=== PATIENT | male | born 2000 ===

== ENCOUNTER 2023-02-21 08:49 | Outpatient (AMB) | payer OTHER, MEDICAID, SELFPAY ==
[2023-02-21 09:01] VITALS: BP 100/62; PULSE 62; O2SAT 98; BMI 28.6
--- NOTE | 2023-02-21 09:01 | A.OFFPC_ITS ---
Vital Signs 02/21/23 09:01 Height 5 ft 11 in Weight 205 lb BMI 28.6 BP 100/62 Blood Pressure Location Lt brachial Position Sitting Pulse 62 Pulse Source Pulse Oximeter Pulse Oximetry (%) 98 Oxygen Delivery Method Room Air Intake Visit Reasons: Annual Exam for School Intake Note: Patient is here today for a physical. 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 Accompanied by: Self / Same As Patient Allergies No Known Allergies [No Known Allergies*] Allergy (Verified 02/21/23 09:24) Medication List - Last Reconciled 02/21/23 by Stuart Velez PA-C No Known Home Meds Tobacco use date assessed: 02/21/23 Dental Screening Dental Screen Date: 02/21/23 Did you have a dental visit in the last 12 months?: No Did you have a dental problem in the last 6 months where you did not have access to dental care?: No Was dental information given to patient?: Yes HPI Annual Exam for School HPI Details Patient is a 23-year-old male here today for an new patient/ annual physical. This is the 1st time I am meeting this 23-year-old male. 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 No concerns about his health today. Vaccines: Up-to-date with COVID vaccine, tetanus vaccine. [facility] Surgical History S/P knee surgery Social History (Updated 02/21/23 @ 09:28 by Stuart Velez PA-C) Housing: Apartment ([employer] [facility]) Alcohol intake: current Alcohol intake frequency: holidays/special occasions only Alcohol type: beer Patient Tobacco Use Status: Never used Tobacco e-Cigarette/Vaping Use: Never Used service: No Current occupational status: student Cognitive needs: No Hearing needs: No Vision needs: No Questionnaire PHQ-9 Over the last 2 weeks, how often have you been bothered by any of the following problems? 1. Little interest or pleasure in doing things: not at all 2. Feeling down, depressed, or hopeless: not at all 3. Trouble falling or staying asleep, or sleeping too much: not at all 4. Feeling tired or having little energy: not at all 5. Poor appetite or overeating: not at all 6. Feeling bad about yourself - or that you are a failure or have let yourself or your family down: not at all 7. Trouble concentrating on things, such as reading the newspaper or watching television: not at all 8. Moving or speaking so slowly that other people could have noticed. Or the opposite - being so fidgety or restless that you have been moving around a lot more than usual: not at all 9. Thoughts that you would be better off or of hurting yourself in some way: not at all Total score: 0 Depression Screening Interpretation: Negative 19755 - PHQ-9 Billing: Yes Source: Developed by Drs. José Luis Ji, Whitney Brown, Rich Byers and colleagues, with an educational tigre from [employer]. Thrive Questionnaire Date Thrive assessed: 02/21/23 I am a: Patient What is your living situation today?: I have a steady place to live Within the past 12 months, did the food you bought not last and you didn't have the money to get more?: Never true Within the past 12 months, did you worry whether your food would run out before you got money to buy more?: Never true Do you have trouble paying for medicines?: No Do you have trouble getting transportation to medical appointments?: No Do you have trouble paying your heating and electricity bill?: No Do you have trouble taking care of your child, family member or friend?: No Do you have trouble with day-to-day activities such as bathing, preparing meals, shopping, managing finances, etc.?: No Are you currently unemployed and looking for a job?: No Please select the resources that you would like help with: None Currently or been in a relationship where the following occur: no concerns reported AUDIT C Alcohol Use Questionnaire (AUDIT-C) 1. How often do you have a drink containing alcohol?: 2-4 times a month 2. How many drinks containing alcohol do you have on a typical day when you are drinking?: 3 or 4 3. How often do you have six or more drinks on one occasion?: Monthly Total Score: 5 NUPUR-7 AMB Questionnaire NUPUR-7 Date NUPUR - 7 assessed: 02/21/23 Feeling nervous, anxious, or on edge: 0 = Not at all Not being able to stop or control worryin = Not at all Worrying too much about different things: 0 = Not at all Trouble relaxin = Not at all Being so restless that it is hard to sit still: 0 = Not at all Becoming easily annoyed or irritable: 0 = Not at all Feeling afraid as if something awful might happen: 0 = Not at all Total NUPUR-7 score (0-4 normal; 5-9 mild; 10-14 moderate; 15-21 severe): 0 Source: Developed by Drs. José Luis Ji, Whitney Brown, Rich Byers and colleagues, with an educational tigre from [employer]. NUPUR-7 Assessment Billing NUPUR-7 Assessment Tool: NUPUR-7 Assessment 40911 Review of Systems Const Denies body aches, Denies chills, Denies excessive sweating, Denies fatigue, Denies fever(s) and Denies headache(s) Eyes Denies blurry vision ENT Denies dysphagia, Denies vertigo, Denies dizziness, Denies headache(s), Denies hearing loss and Denies tinnitus Card Denies chest pain, Denies chest pain with activity, Denies syncope, Denies irregular heart rhythm and Denies dyspnea Resp Denies chest congestion, Denies cough, Denies hemoptysis, Denies dyspnea and Denies wheezing GI Denies abdominal pain, Denies melena, Denies hematochezia, Denies coffee ground emesis, Denies dysphagia, Denies diarrhea, Denies nausea and Denies vomiting Denies difficulty urinating, Denies dysuria, Denies urinary frequency, Denies urinary hesitancy and Denies urinary urgency Musc Denies arthralgias, Denies limited range of motion, Denies muscle cramps and Denies muscle weakness Skin/Breast Denies rash and Denies skin ulcer Neuro Denies Abnormal speech present, Denies confusion, Denies vertigo, Denies dizziness, Denies syncope, Denies headache(s), Denies memory loss and Denies seizure-like activity Psych Denies anxiety, Denies confusion, Denies depression, Denies memory loss, Denies panic attacks and Denies paranoia Endo Denies excessive sweating, Denies fatigue, Denies flushing, Denies polydipsia and Denies polyuria Aller/Immun Denies wheezing Physical exam (Primary Care) Vital Signs: Last Vital Signs Pulse 62 02/21/23 09:01 BP 100/62 09/12/23 09:01 Pulse Ox 98 02/21/23 09:01 Oxygen Delivery Method Room Air 02/21/23 09:01 BMI result Body Mass Index 28.6 Tobacco/Smoking Status: Tobacco use Status Tobacco use date assessed 02/21/23 02/21/23 09:13 Patient Tobacco Use Status Never used Tobacco 02/21/23 09:13 e-Cigarette/Vaping Use Never Used 02/21/23 09:13 PHQ-9: PHQ-9 Score PHQ-9: Total score 0 02/21/23 09:13 Depression Screening Interpretation: Negative Thrive Assessment: Date of Thrive Assessment Date Thrive assessed 02/21/23 02/21/23 09:13 Currently or been in a relationship where the following occur: no concerns reported Const General: cooperative, comfortable, no acute distress, alert and awake; No confusion Orientation/consciousness: oriented to person, oriented to place, patient oriented x3 and No confusion HENMT Head: Yes normocephalic Ears: external ears normal and TM's normal bilaterally Face and sinus: No sinus tenderness Mouth: Normal oral and palatal mucosa present and tongue normal Teeth and gingiva: dentition normal and gingiva normal Throat: Yes posterior oropharynx normal, Yes tonsils normal and Yes uvula midline Eyes Conjunctivae: conjunctivae normal Sclerae: sclerae normal Pupils: Equal, round and reactive pupils present EOM: EOMs intact bilaterally Direct Ophthalmoscopy: No no photophobia Neck Neck: Yes no lymphadenopathy, No tender and Yes no JVD Thyroid: Thyroid normal Carotids: no bruits Chest Chest palpation & inspection: no tenderness Resp Effort & Inspection: normal respiratory effort, no audible wheezes, not labored and no stridor Auscultation: no crackles, no rales, no rhonchi and no wheezes Cardio Jugular venous distension: no JVD Rate: regular rate, not bradycardic and not tachycardic Rhythm: regular rhythm Bruits: no carotid bruits Peripheral pulses: Peripheral pulses 2+ throughout GI Inspection: Yes normal to inspection, No abdominal wall ecchymosis and No visible herniation Palpation (GI): Soft to palpation, nontender, no guarding, not rigid and No hepatosplenomegaly present Auscultation: normoactive bowel sounds General: Yes no CVA tenderness Back/Spine/Pelvis Back: no CVA tenderness and No back tenderness Cervical Spine: cervical ROM normal Thoracic/Lumbar Spine: thoracic and lumbar spine normal to inspection, straight leg raise negative bilaterally, No thoraco-lumbar ROM limited and No lumbar spinal tenderness Skin Lesions: no lesions Rashes: no rashes Wounds: no wounds Neuro General: oriented to person, oriented to place, patient oriented x3, CN's II-XI intact bilaterally and No confusion Cranial nerves: Yes Equal, round and reactive pupils present and Yes Normal acco mmodation reflex present Cognition (Neuro): normal cognition Speech: No Abnormal speech present Gait exam (Neuro): Normal gait present Motor exam (neuro): 5/5 motor strength present throughout Extrem Right upper extremity: full ROM; no cyanosis Left upper extremity: full ROM; no cyanosis Right lower extremity: no edema Left lower extremity: no edema Psych Appearance: grossly normal Mental Status: mental status grossly normal Affect: normal affect Attitude: cooperative Thought process: Normal thought process present Assessment and Plan Assessment & Plan (1) Annual physical exam: Code(s): Z00.00 - Encounter for general adult medical examination without abnormal findings (2) Screening for diabetes mellitus (DM): Code(s): Z13.1 - Encounter for screening for diabetes mellitus Orders: Orders Complete Blood Count no Diff Today Z13.1 - Encounter for screening for diabetes mellitus Comprehensive [place]. Panel Fast Today Z13.1 - Encounter for screening for diabetes mellitus Coding Level of Care Code New Pt Prev Care 18-39yr(99600 Diagnoses Annual physical exam Z00.00 Screening for diabetes mellitus (DM) Z13.1 Additional Codes NUPUR-7 Assessment Billing - NUPUR-7 Assessment Tool: NUPUR-7 Assessment 03341 ([id number])
== END 2023-02-21 09:39 | disposition home or self-care (01) ==
PROVIDERS: PCP Pediatrics; Visit Provider Physician Assistant
DX: Z00.00 Encounter for general adult medical examination without abnormal findings (principal); Z13.1 Encounter for screening for diabetes mellitus
CPT/HCPCS: 99385

== ENCOUNTER 2024-04-11 15:11 | Outpatient (AMB) | payer OTHER, MEDICAID, SELFPAY ==
--- NOTE | 2024-04-11 15:18 | MHC.PC.OV ---
Vital Signs 04/11/24 15:26 Height 5 ft 11 in Weight 182 lb BMI 25.4 BP 104/60 Blood Pressure Location Rt brachial Position Sitting Pulse 58 Pulse Source Pulse Oximeter Pulse Oximetry (%) 99 Oxygen Delivery Method Room Air Intake Visit Reasons: annual exam Intake Note: Patient is here today for a physical. 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 Accompanied by: Self / Same As Patient Allergies No Known Allergies [No Known Allergies*] Allergy (Verified 04/11/24 15:29) Medication List - Last Reconciled 04/11/24 by Stuart Velez PA-C No Known Home Meds Tobacco use date assessed: 04/11/24 Dental Screening Dental Screen Date: 04/11/24 Did you have a dental visit in the last 12 months?: Yes Did you have a dental problem in the last 6 months where you did not have access to dental care?: No Was dental information given to patient?: Patient has dentist HPI annual exam HPI Details Patient is a 24-year-old male here today for an new patient/ annual physical. Patient does not any significant past medical history besides a left knee injury in the past that required surgery on his meniscus. 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 No concerns about his health today. Vaccines: Up-to-date with COVID vaccine, tetanus vaccine, up-to-date with flu vaccine [facility] Surgical History S/P knee surgery Social History (Updated 04/11/24 @ 15:32 by Stuart Velez PA-C) Housing: Apartment ([employer]) Alcohol intake: current Alcohol intake frequency: holidays/special occasions only Alcohol type: beer Patient Tobacco Use Status: Never used Tobacco e-Cigarette/Vaping Use: Never Used service: No Current occupational status: student Cognitive needs: No Hearing needs: No Vision needs: No Questionnaire PHQ-9 Over the last 2 weeks, how often have you been bothered by any of the following problems? 1. Little interest or pleasure in doing things: not at all 2. Feeling down, depressed, or hopeless: not at all 3. Trouble falling or staying asleep, or sleeping too much: not at all 4. Feeling tired or having little energy: not at all 5. Poor appetite or overeating: not at all 6. Feeling bad about yourself - or that you are a failure or have let yourself or your family down: not at all 7. Trouble concentrating on things, such as reading the newspaper or watching television: not at all 8. Moving or speaking so slowly that other people could have noticed. Or the opposite - being so fidgety or restless that you have been moving around a lot more than usual: not at all 9. Thoughts that you would be better off or of hurting yourself in some way: not at all Total score: 0 Depression Screening Interpretation: Negative Depression Screening Done: Yes 23936 - PHQ-9 Billing: Yes Source: Developed by Drs. José Luis Ji, Whitney Brown, Rich Byers and colleagues, with an educational tigre from [employer]. Thrive Questionnaire Date Thrive assessed: 04/11/24 I am a: Patient What is your living situation today?: I have a steady place to live Within the past 12 months, did the food you bought not last and you didn't have the money to get more?: I choose not to answer this question Within the past 12 months, did you worry whether your food would run out before you got money to buy more?: I choose not to answer this question Do you have trouble paying for medicines?: I choose not to answer this question Do you have trouble getting transportation to medical appointments?: I choose not to answer this question Do you have trouble paying your heating and electricity bill?: I choose not to answer this question Do you have trouble taking care of your child, family member or friend?: I choose not to answer this question Do you have trouble with day-to-day activities such as bathing, preparing meals, shopping, managing finances, etc.?: I choose not to answer this question Are you currently unemployed and looking for a job?: I choose not to answer this question Are you interested in more education?: I choose not to answer this question Please select the resources that you would like help with: None Currently or been in a relationship where the following occur: I choose not to answer THRIVE Score: 0 AUDIT C Alcohol Use Questionnaire (AUDIT-C) 1. How often do you have a drink containing alcohol?: Monthly or less 2. How many drinks containing alcohol do you have on a typical day when you are drinking?: 1 or 2 3. How often do you have six or more drinks on one occasion?: Never Total Score: 1 NUPUR-7 AMB Questionnaire NUPUR-7 Date NUPUR - 7 assessed: 04/11/24 Feeling nervous, anxious, or on edge: 0 = Not at all Not being able to stop or control worryin = Not at all Worrying too much about different things: 0 = Not at all Trouble relaxin = Not at all Being so restless that it is hard to sit still: 0 = Not at all Becoming easily annoyed or irritable: 0 = Not at all Feeling afraid as if something awful might happen: 0 = Not at all Total NUPUR-7 score (0-4 normal; 5-9 mild; 10-14 moderate; 15-21 severe): 0 Source: Developed by Drs. José Luis iJ, Whitney Brown, Rich Byers and colleagues, with an educational tigre from [employer]. NUPUR-7 Assessment Billing NUPUR-7 Assessment Tool: NUPUR-7 Assessment 25869 Review of Systems Const Denies body aches, Denies chills, Denies excessive sweating, Denies fatigue, Denies fever(s) and Denies headache(s) Eyes Denies blurry vision ENT Denies dysphagia, Denies vertigo, Denies dizziness, Denies headache(s), Denies hearing loss and Denies tinnitus Card Denies chest pain, Denies chest pain with activity, Denies syncope, Denies irregular heart rhythm and Denies dyspnea Resp Denies chest congestion, Denies cough, Denies hemoptysis, Denies dyspnea and Denies wheezing GI Denies abdominal pain, Denies melena, Denies hematochezia, Denies coffee ground emesis, Denies dysphagia, Denies diarrhea, Denies nausea and Denies vomiting Denies difficulty urinating, Denies dysuria, Denies urinary frequency, Denies urinary hesitancy and Denies urinary urgency Musc Denies arthralgias, Denies limited range of motion, Denies muscle cramps and Denies muscle weakness Skin/Breast Denies rash and Denies skin ulcer Neuro Denies Abnormal speech present, Denies confusion, Denies vertigo, Denies dizziness, Denies syncope, Denies headache(s), Denies memory loss and Denies seizure-like activity Psych Denies anxiety, Denies confusion, Denies depression, Denies memory loss, Denies panic attacks and Denies paranoia Endo Denies excessive sweating, Denies fatigue, Denies flushing, Denies polydipsia and Denies polyuria Aller/Immun Denies wheezing Physical exam (Primary Care) Vital Signs: Last Vital Signs Pulse 58 04/11/24 15:26 BP 104/60 04/11/24 15:26 Pulse Ox 99 04/11/24 15:26 Oxygen Delivery Method Room Air 04/11/24 15:26 BMI result Body Mass Index 25.4 Tobacco/Smoking Status: Tobacco use Status Tobacco use date assessed 04/11/24 04/11/24 15:21 Patient Tobacco Use Status Never used Tobacco 04/11/24 15:32 e-Cigarette/Vaping Use Never Used 04/11/24 15:32 PHQ-9: PHQ-9 Score PHQ-9: Total score 0 04/11/24 15:39 Depression Screening Interpretation: Negative Thrive Assessment: Date of Thrive Assessment Date Thrive assessed 04/11/24 04/11/24 15:21 Currently or been in a relationship where the following occur: I choose not to answer Const General: cooperative, comfortable, no acute distress, alert and awake; No confusion Orientation/consciousness: oriented to person, oriented to place, patient oriented x3 and No confusion HENMT Head: Yes normocephalic Ears: external ears normal and TM's normal bilaterally Face and sinus: No sinus tenderness Mouth: Normal oral and palatal mucosa present and tongue normal Teeth and gingiva: dentition normal and gingiva normal Throat: Yes posterior oropharynx normal, Yes tonsils normal and Yes uvula midline Eyes Conjunctivae: conjunctivae normal Sclerae: sclerae normal Pupils: Equal, round and reactive pupils present EOM: EOMs intact bilaterally Direct Ophthalmoscopy: No no photophobia Neck Neck: Yes no lymphadenopathy, No tender and Yes no JVD Thyroid: Thyroid normal Carotids: no bruits Chest Chest palpation & inspection: no tenderness Resp Effort & Inspection: normal respiratory effort, no audible wheezes, not labored and no stridor Auscultation: no crackles, no rales, no rhonchi and no wheezes Cardio Jugular venous distension: no JVD Rate: regular rate, not bradycardic and not tachycardic Rhythm: regular rhythm Bruits: no carotid bruits Peripheral pulses: Peripheral pulses 2+ throughout GI Inspection: Yes normal to inspection, No abdominal wall ecchymosis and No visible herniation Palpation (GI): Soft to palpation, nontender, no guarding, not rigid and No hepatosplenomegaly present Auscultation: normoactive bowel sounds General: Yes no CVA tenderness Back/Spine/Pelvis Back: no CVA tenderness and No back tenderness Cervical Spine: cervical ROM normal Thoracic/Lumbar Spine: thoracic and lumbar spine normal to inspection, straight leg raise negative bilaterally, No thoraco-lumbar ROM limited and No lumbar spinal tenderness Skin Lesions: no lesions Rashes: no rashes Wounds: no wounds Neuro General: oriented to person, oriented to place, patient oriented x3, CN's II-XI intact bilaterally and No confusion Cranial nerves: Yes Equal, round and reactive pupils present and Yes Normal accommodation reflex present Cognition (Neuro): normal cognition Speech: No Abnormal speech present Gait exam (Neuro): Normal gait present Motor exam (neuro): 5/5 motor strength present throughout Extrem Right upper extremity: full ROM; no cyanosis Left upper extremity: full ROM; no cyanosis Right lower extremity: no edema Left lower extremity: no edema Psych Appearance: grossly normal Mental Status: mental status grossly normal Affect: normal affect Attitude: cooperative Thought process: Normal thought process present Office Procedures Flu Questionnaire Does the patient have a severe egg allergy?: No Does the patient have severe life threatening allergies?: No Does the patient have a fever or illness today?: No Has the patient ever had Guillain-Lovejoy Syndrome?: No Has the patient ever had any past reaction to a flu shot?: No Immunizations Fluarix Triv [id number] (PF) 45 mcg (15 mcg x 3)/0.5 mL IM syringe Performing Provider: Stuart Velez PA-C [facility] Administered by: CARLIE Shen on 04/11/24 15:27 Dose Route Admin Location Dispensed Lot Number Expiration Date [employer] 0.5 mL IM Right Deltoid 0.5 mL [id number] 12/09/24 [id number] [employer] VIS Given Date VIS Provided VIS Publication Date 04/11/24 Single Vaccine 21 Eligibility Eligibility Date Funding Source Not [facility] Eligible 04/11/24 Private Coding Level of Care Code Est Pt Prev Care 18-39y(36441) Diagnoses Annual physical exam Z00.00 Screening for diabetes mellitus (DM) Z13.1 Additional Codes NUPUR-7 Assessment Billing - NUPUR-7 Assessment Tool: NUPUR-7 Assessment 18816 ([id number]) Assessment & Plan Assessment & Plan (1) Annual physical exam: Code(s): Z00.00 - Encounter for general adult medical examination without abnormal findings Category: Medical Plan: As per HPI (2) Screening for diabetes mellitus (DM): Code(s): Z13.1 - Encounter for screening for diabetes mellitus Category: Medical Plan: As per HPI Orders: Orders Influenza [id number] Immunization 04/11/24 Z23 - Encounter for immunization Comprehensive [place]. Panel Fast 04/11/24 Z13.1 - Encounter for screening for diabetes mellitus Complete Blood Count no Diff 04/11/24 Z13.1 - Encounter for screening for diabetes mellitus
[2024-04-11 15:26] VITALS: BP 104/60; PULSE 58; O2SAT 99; BMI 25.4
== END 2024-04-11 15:51 | disposition home or self-care (01) ==
LOC: HO.HMCH 15:12
PROVIDERS: PCP Physician Assistant; Visit Provider Physician Assistant
DX: Z00.00 Encounter for general adult medical examination without abnormal findings (principal); Z13.1 Encounter for screening for diabetes mellitus

== ENCOUNTER → 2024-04-11 15:11 | Outpatient (BNVA) | payer OTHER, MEDICAID, SELFPAY | PROVIDERS: PCP Physician Assistant; Visit Provider Physician Assistant | DX: Z00.00 Encounter for general adult medical examination without abnormal findings (principal); Z23 Encounter for immunization | CPT/HCPCS: 90471; 90656; 96127 ==

== ENCOUNTER 2024-04-29 09:00 | Outpatient (REF) | payer OTHER, MEDICAID, SELFPAY ==
[2024-04-29 09:39] LABS: Hematocrit 46.3 % (42.0-52.0); Hemoglobin 15.4 g/dl (14.0-18.0); Mean Corpuscular HGB Conc 33.3 g/dl (31.0-36.0); Mean Corpuscular Hemoglobin 28.1 pg (27.0-33.0); Mean Corpuscular Volume 84.5 fL (80.0-98.0); Mean Platelet Volume 9.1 fL (9.4-12.4); Platelet Count 254 X10*3/uL (160-400); Red Blood Count 5.48 X10*6/uL (4.60-5.80); Red Cell Distribution Width 12.2 % (11.0-16.0); White Blood Count 5.6 X10*3/uL (4.8-10.8)
[2024-04-29 10:26] LABS: Alanine Aminotransferase 19 U/L (0-40); Albumin Level 4.3 g/dL (3.5-5.0); Alkaline Phosphatase 63 U/L (39-117); Anion Gap 9 (12-20); Aspartate Amino Transferase 24 U/L (5-37); Bilirubin Total 0.8 mg/dL (0.0-1.0); Blood Urea Nitrogen 14 mg/dL (9-16); Calcium 9.2 mg/dL (8.4-10.2); Carbon Dioxide 30 mmol/L (22-29); Chloride 105 mmol/L (96-108); Estimated Glomerular Filt Rate > 60; Glucose Fasting 97 mg/dL (60-99); Potassium 4.2 mmol/L (3.3-5.1); Sodium 140 mmol/L (135-145); Total Protein 7.3 g/dL (6.5-8.0)
== END 2024-04-29 09:01 | disposition home or self-care (01) ==
LOC: HO.LAB 09:00
PROVIDERS: PCP Physician Assistant; Visit Provider Physician Assistant
DX: Z13.1 Encounter for screening for diabetes mellitus (principal)
CPT/HCPCS: 36415; 80053; 85027

== ENCOUNTER 2024-04-30 07:40 | Outpatient (REF) | payer OTHER, MEDICAID, SELFPAY ==
[2024-04-30 09:15] LABS: Influenza A PCR NEGATIVE (Negative); Influenza B PCR NEGATIVE (Negative); Resp Syncy Virus RNA Qual PCR NEGATIVE (Negative); SARS COV2 PCR INHOUSE NEGATIVE (Negative)
[2024-04-30 10:21] LABS: Monotest Negative (Negative)
== END 2024-04-30 07:41 | disposition home or self-care (01) ==
LOC: HO.LAB 07:40
PROVIDERS: PCP Physician Assistant; Visit Provider Physician Assistant
DX: R53.83 Other fatigue (principal); R06.02 Shortness of breath
CPT/HCPCS: 0241U; 86308

== ENCOUNTER 2025-04-21 13:30 | Outpatient (AMB) | payer OTHER, MEDICAID, SELFPAY ==
--- NOTE | 2025-04-21 13:35 | MHC.PC.OV ---
Vital Signs 04/21/25 13:36 Height 5 ft 11 in Weight 184 lb 8 oz BMI 25.7 BP 100/58 L Blood Pressure Location Lt brachial Position Sitting Pulse 64 Pulse Source Pulse Oximeter Temp 97.1 F Temp Source Temporal Artery Scan Pulse Oximetry (%) 99 Oxygen Delivery Method Room Air Intake Visit Reasons: Annual Exam Intake Note: Patient is here today for a physical. Sales Producer Required: No Assistant Golf Professional: Not Required per policy Accompanied by: Self / Same As Patient Allergies No Known Allergies (No Known Allergies*) Allergy (Verified 04/21/25 13:45) Medication List - Last Reconciled 04/21/25 by Stuart Velez PA-C No Known Home Meds Tobacco use date assessed: 04/21/25 Dental Screening Dental Screen Date: 04/21/25 Did you have a dental visit in the last 12 months?: Yes Did you have a dental problem in the last 6 months where you did not have access to dental care?: No Was dental information given to patient?: Patient has dentist HPI Annual Exam HPI Details Patient is a 25-year-old male here today for an annual physical. Patient does not any significant past medical history besides a left knee injury in the past that required surgery on his meniscus. No concerns about his health today. Vaccines: Up-to-date with COVID vaccine, tetanus vaccine, Needs [facility] History S/P knee surgery Social History (Updated 04/21/25 @ 13:51 by Stuart Velez PA-C) Housing: Apartment ([facility]) Alcohol intake: current Alcohol intake frequency: holidays/special occasions only Alcohol type: beer Patient Tobacco Use Status: Never used Tobacco e-Cigarette/Vaping Use: Never Used Second Hand Smoke Exposure: No service: No Current occupational status: employed Cognitive needs: No Hearing needs: No Vision needs: Yes (Glasses) Questionnaire PHQ-9 Over the last 2 weeks, how often have you been bothered by any of the following problems? 1. Little interest or pleasure in doing things: not at all 2. Feeling down, depressed, or hopeless: not at all 3. Trouble falling or staying asleep, or sleeping too much: not at all 4. Feeling tired or having little energy: not at all 5. Poor appetite or overeating: not at all 6. Feeling bad about yourself - or that you are a failure or have let yourself or your family down: not at all 7. Trouble concentrating on things, such as reading the newspaper or watching television: not at all 8. Moving or speaking so slowly that other people could have noticed. Or the opposite - being so fidgety or restless that you have been moving around a lot more than usual: not at all 9. Thoughts that you would be better off or of hurting yourself in some way: not at all Total score: 0 Depression Screening Interpretation: Negative Depression Screening Done: Yes 31115 - PHQ-9 Billing: Patient declined-do not bill Source: Developed by Drs. José Luis Ji, Whitney Brown, Rich Byers and colleagues, with an educational tigre from [employer]. Thrive Questionnaire Date Thrive assessed: 04/21/25 I am a: Patient What is your living situation today?: I have a steady place to live Within the past 12 months, did the food you bought not last and you didn't have the money to get more?: Never true Within the past 12 months, did you worry whether your food would run out before you got money to buy more?: Never true Do you have trouble paying for medicines?: I choose not to answer this question Do you have trouble getting transportation to medical appointments?: No Do you have trouble paying your heating and electricity bill?: No Do you have trouble taking care of your child, family member or friend?: I choose not to answer this question Do you have trouble with day-to-day activities such as bathing, preparing meals, shopping, managing finances, etc.?: No Are you currently unemployed and looking for a job?: No Are you interested in more education?: I choose not to answer this question Please select the resources that you would like help with: None Currently or been in a relationship where the following occur: No concerns reported THRIVE Score: 0 AUDIT C Alcohol Use Questionnaire (AUDIT-C) 1. How often do you have a drink containing alcohol?: Monthly or less 2. How many drinks containing alcohol do you have on a typical day when you are drinking?: 1 or 2 3. How often do you have six or more drinks on one occasion?: Never Total Score: 1 NUPUR-7 AMB Questionnaire NUPUR-7 Date NUPUR - 7 assessed: 04/11/24 Feeling nervous, anxious, or on edge: 0 = Not at all Not being able to stop or control worryin = Not at all Worrying too much about different things: 0 = Not at all Trouble relaxin = Not at all Being so restless that it is hard to sit still: 0 = Not at all Becoming easily annoyed or irritable: 0 = Not at all Feeling afraid as if something awful might happen: 0 = Not at all Total NUPUR-7 score (0-4 normal; 5-9 mild; 10-14 moderate; 15-21 severe): 0 Source: Developed by Drs. José Luis Ji, Whitney Brown, Rich Byers and colleagues, with an educational tigre from [employer]. NUPUR-7 Assessment Billing NUPUR-7 Assessment Tool: NUPUR-7 Assessment 79503 Review of Systems Const Denies body aches, Denies chills, Denies excessive sweating, Denies fatigue, Denies fever(s) and Denies headache(s) Eyes Denies blurry vision ENT Denies dysphagia, Denies vertigo, Denies dizziness, Denies headache(s), Denies hearing loss and Denies tinnitus Card Denies chest pain, Denies chest pain with activity, Denies syncope, Denies irregular heart rhythm and Denies dyspnea Resp Denies chest congestion, Denies cough, Denies hemoptysis, Denies dyspnea and Denies wheezing GI Denies abdominal pain, Denies melena, Denies hematochezia, Denies coffee ground emesis, Denies dysphagia, Denies diarrhea, Denies nausea and Denies vomiting Denies difficulty urinating, Denies dysuria, Denies urinary frequency, Denies urinary hesitancy and Denies urinary urgency Musc Denies arthralgias, Denies limited range of motion, Denies muscle cramps and Denies muscle weakness Skin/Breast Denies rash and Denies skin ulcer Neuro Denies Abnormal speech present, Denies confusion, Denies vertigo, Denies dizziness, Denies syncope, Denies headache(s), Denies memory loss and Denies seizure-like activity Psych Denies anxiety, Denies confusion, Denies depression, Denies memory loss, Denies panic attacks and Denies paranoia Endo Denies excessive sweating, Denies fatigue, Denies flushing, Denies polydipsia and Denies polyuria Aller/Immun Denies wheezing Physical exam (Primary Care) Vital Signs: Last Vital Signs Temp 97.1 F 04/21/25 13:36 Pulse 64 04/21/25 13:36 BP 100/58 L 04/21/25 13:36 Pulse Ox 99 04/21/25 13:36 Oxygen Delivery Method Room Air 04/21/25 13:36 BMI result Body Mass Index 25.7 Tobacco/Smoking Status: Tobacco use Status Tobacco use date assessed 04/21/25 04/21/25 13:40 Patient Tobacco Use Status Never used Tobacco 04/21/25 13:51 e-Cigarette/Vaping Use Never Used 04/21/25 13:51 PHQ-9: PHQ-9 Score PHQ-9: Total score 0 04/21/25 13:52 Depression Screening Interpretation: Negative Thrive Assessment: Date of Thrive Assessment Date Thrive assessed 04/21/25 04/21/25 13:40 Currently or been in a relationship where the following occur: No concerns reported Const General: cooperative, comfortable, no acute distress, alert and awake; No confusion Orientation/consciousness: oriented to person, oriented to place, patient oriented x3 and No confusion HENMT Head: Yes normocephalic Ears: external ears normal and TM's normal bilaterally Face and sinus: No sinus tenderness Mouth: Normal oral and palatal mucosa present and tongue normal Teeth and gingiva: dentition normal and gingiva normal Throat: Yes posterior oropharynx normal, Yes tonsils normal and Yes uvula midline Eyes Conjunctivae: conjunctivae normal Sclerae: sclerae normal Pupils: Equal, round and reactive pupils present EOM: EOMs intact bilaterally Direct Ophthalmoscopy: No no photophobia Neck Neck: Yes no lymphadenopathy, No tender and Yes no JVD Thyroid: Thyroid normal Carotids: no bruits Chest Chest palpation & inspection: no tenderness Resp Effort & Inspection: normal respiratory effort, no audible wheezes, not labored and no stridor Auscultation: no crackles, no rales, no rhonchi and no wheezes Cardio Jugular venous distension: no JVD Rate: regular rate, not bradycardic and not tachycardic Rhythm: regular rhythm Bruits: no carotid bruits Peripheral pulses: Peripheral pulses 2+ throughout GI Inspection: Yes normal to inspection, No abdominal wall ecchymosis and No visible herniation Palpation (GI): Soft to palpation, nontender, no guarding, not rigid and No hepatosplenomegaly present Auscultation: normoactive bowel sounds General: Yes no CVA tenderness Back/Spine/Pelvis Back: no CVA tenderness and No back tenderness Cervical Spine: cervical ROM normal Thoracic/Lumbar Spine: thoracic and lumbar spine normal to inspection, straight leg raise negative bilaterally, No thoraco-lumbar ROM limited and No lumbar spinal tenderness Skin Lesions: no lesions Rashes: no rashes Wounds: no wounds Neuro General: oriented to person, oriented to place, patient oriented x3, CN's II-XI intact bilaterally and No confusion Cranial nerves: Yes Equal, round and reactive pupils present and Yes Normal accommodation reflex present Cognition (Neuro): normal cognition Speech: No Abnormal speech present Gait exam (Neuro): Normal gait present Motor exam (neuro): 5/5 motor strength present throughout Extrem Right upper extremity: full ROM; no cyanosis Left upper extremity: full ROM; no cyanosis Right lower extremity: no edema Left lower extremity: no edema Psych Appearance: grossly normal Mental Status: mental status grossly normal Affect: normal affect Attitude: cooperative Thought process: Normal thought process present Office Procedures Flu Questionnaire Does the patient have a severe egg allergy?: No Does the patient have severe life threatening allergies?: No Does the patient have a fever or illness today?: No Has the patient ever had Guillain-[place] Syndrome?: No Has the patient ever had any past reaction to a flu shot?: No Immunizations Fluarix [id number] (PF) 45 mcg (15 mcg x 3)/0.5 mL IM syringe Performing Provider: Stuart Velez PA-C [facility] Administered by: Alicia Hartman CMA on 04/21/25 14:06 Dose Route Admin Location Dispensed Lot Number Expiration Date [facility] Community Outreach Coordinator 0.5 mL IM Left Deltoid 0.5 mL [id number] 12/09/25 [id number] [employer] VIS Given Date VIS Provided VIS Publication Date 04/21/25 Single Vaccine 24 Eligibility Eligibility Date Funding Source Not [facility] Eligible 04/21/25 Private Coding Level of Care Code Est Pt Prev Care 18-39y(09835) Diagnoses Annual physical exam Z00.00 Screening for diabetes mellitus (DM) Z13.1 Additional Codes NUPUR-7 Assessment Billing - NUPUR-7 Assessment Tool: NUPUR-7 Assessment 66018 ([id number]) Assessment & Plan Assessment & Plan (1) Annual physical exam: Code(s): Z00.00 - Encounter for general adult medical examination without abnormal findings Category: Medical Plan: As per HPI (2) Screening for diabetes mellitus (DM): Code(s): Z13.1 - Encounter for screening for diabetes mellitus Category: Medical Plan: As per HPI Orders: Orders Vitamin D 25-OH Total Today R53.83 - Other fatigue Comprehensive [place]. Panel Fast Today Z13.1 - Encounter for screening for diabetes mellitus Complete Blood Count no Diff Today Z13.1 - Encounter for screening for diabetes mellitus Vitamin B12 and Folate Today E53.8 - Deficiency of other specified B group vitamins, R53.83 - Other fatigue Influenza [id number] Immunization Today Z23 - Encounter for immunization
[2025-04-21 13:36] VITALS: BP 100/58; PULSE 64; TEMP 36.2; O2SAT 99; BMI 25.7
--- OUTSIDE RECORDS SUMMARY | 2025-04-21 15:39 | XMS_ITS | Data Portability ---
Author Organization [place] [facility] Noah Esteban AONE Crouse Address [address] [place] [address] Assessment Encounter Date Assessment Date Assessment LastModified by Organization Details LastModified Time 03/20/2023 03/20/2023 He is making satisfactory progress now nearly 9 months following his left knee articular cartilage congregational procedure. He will continue therapy on the outlined protocol. He will slowly progress activities to hopefully be ready for the start of basketball in a month. He will monitor for any swelling or increasing pain. He may benefit from a knee sleeve. He understands that icing may be necessary after activities. We will follow him up in the training room over the next several weeks depending on his degree of symptomatology and ability to progress back to basketball. [email or web address] Not available 03/20/2023 16:30:27 Plan of Treatment Reminders Order Date Submit Date Provider Last Modified By Organization Details Last Modified Time Details Appointments None record ed. Lab None record ed. Referral None record ed. Procedures None record ed. Surgeries None record ed. Imaging None record ed. Medication Orders None record ed. Patient TargetsNo targets recorded. Patient InstructionsNo instructions recorded. Reason for Referral None Reported. Problems Name Problem SNOMED Code Status Onset Date Resolution Date Notes Provider Name and Address Organization Details Recorded Time Problem [id number] Active No known active problems Not Available [facility] 23:11:46 Pain of joint of knee 8799220208 Active 2021 Pain of knee joint with osteochond ral injury Not Available [facility] 23:11:46 Problem Notes None recorded. Medical Equipment None Reported. Medications Name Sig Start Date Stop Date Status Note LastModified by Organization Details LastModified Time ondansetron HCl 4 mg tablet Take 1 tablet (4 mg total) by mouth every 8 (eight) hours as needed for nausea for up to 5 doses. Take 1 Tab by mouth daily as needed for nausea (after surgery) 08/13 completed Not Available Not Available Not Available aspirin 81 mg tablet,delay ed release Take 1 tablet (81 mg total) by mouth 2 (two) times a day for 14 days. 12/07 completed Not Available Not Available Not Available meloxicam 7.5 mg tablet Take 1 tablet (7.5 mg total) by mouth daily before lunch. 08/13 completed Not Available Not Available Not Available cephalexin 500 mg capsule Take 1 capsule (500 mg total) by mouth 4 (four) times a day for 4 doses. Take 1 capsule( 500mg total) by mouth 4 times a day. Start after surgery. 11/24 completed Not Available Not Available Not Available gabapentin 300 mg capsule Take 1 capsule (300 mg total) by mouth daily for 3 doses. Take 1 capsule (300mg total) by mouth daily. Start first dose the evening prior to surgery. 11/26 completed Not Available Not Available Not Available oxycodone 5 mg tablet Take 1 tablet (5 mg total) by mouth every 6 (six) hours as needed for pain. Take 1 tablet (5mg total) every 6 hours as needed for pain. Do not start until after surgery. 07/01 completed Not Available Not Available Not Available Vitals None Recorded Social History None recorded. Functional Status None recorded. Mental Status None recorded. Family History Nothing Reported. Medical History No medical history recorded. Past Encounters Encounter ID Performer Location Encounter Start Date Encounter Closed Date Diagnosis/Indication Diagnosis SNOMED-CT Code Diagnosis ICD10 Code Diagnosis IMO Codes Diagnosis Note [id number] MD NERY Aranda [address] [place] [address] [place] [id number] 03/20/2023 15:11:26 03/20/2023 15:33:51 Health Concerns Section Related Observation LastModified by Organization Detai ls LastModified Time None Recorded Concern Status LastModified by Organization Details LastModified Time None Recorded Advance Directives Directive None Recorded Payers Insurance Date Sequence Insurance Name Policy Number Policy Lackey Covered Member ID Lackey Member ID Guarantor Name 03/20/[address] [place] [address] [id number] Bossman Bourgeois [id number] Bossman Bourgeois Notes Date Note Type Note Provider Name and Address Organization Details Recorded Time 03/20/2023 text/html ROS as noted in the HPI 06/30/2022: Left knee RAYO lateral femoral condyle He is nearly 9 months following his left knee surgery. Overall the knee has been feeling fairly good. He has been progressing activities. He continues in physical therapy. A week or 2 ago he developed some medially based sharp pain which would come and go. He thought there might have been a trace amount of swelling but that has resolved. He denies any lateral pain. He is anxious to be ready for basketball activities which fully start in about a month. Neeraj Tran MD [address] [place] [address], [id number], [place] [facility] 03/20/2023 16:30:36
--- OUTSIDE RECORDS SUMMARY | 2025-04-21 15:39 | XMS_ITS | Encounter Summary ---
Author Organization [facility] Address [address] [id number] Phone Care Team Providers Care Clerical Warehouse Worker Name Role Phone Celia Lee MD Primary Care Provider [phone] Encounter Details Date Type Department Care Team (Late st Contact Info) Description 01/26/2017 Conversion Encounter [facility] - [address] [address] Social History Tobacco Use Types Packs/Day Years Used Date Smoking Tobacco: Never Assessed Sex and Gender Information Value Date Recorded Sex Assigned at Male 01/28/2019 9:48 AM EDT Legal Sex Male 5:14 PM EDT Gender Identity Male 01/28/2019 9:48 AM EDT Sexual Orientation Straight 01/28/2019 9: 48 AM EDT documented as of this encounter Plan of Treatment Not on file documented as of this encounter Visit Diagnoses Not on filedocumented in this encounter Care Teams Clerical Warehouse Worker Relationship Specialty Start Date End Date Celia Lee MD PCP - General Pediatrics 12/09/19 09/21/22 documented as of this encounter
--- OUTSIDE RECORDS SUMMARY | 2025-04-21 15:39 | XMS_ITS | Encounter Summary ---
Author Organization [facility] Address [address] [place] [address] Phone Care Team Providers Care Evaporator Helper Name Role Phone Celia Lee MD Primary Care Provider [phone] Encounter Details Date Type Department Care Team (Late st Contact Info) Description 08/27/2009 Documentation [facility] Family Medicine [address] [place] [address] Family Medicine, Physician [address] [place] [address] Social History Tobacco Use Types Packs/Day Years [...] on filedocumented in this encounter Care Teams Evaporator Helper Relationship Specialty Start Date End Date Celia Lee MD PCP - General Pediatrics 12/09/19 09/21/22 documented as of this encounter
--- OUTSIDE RECORDS SUMMARY | 2025-04-21 15:40 | XMS_ITS | Encounter Summary ---
Author Organization [facility] Address [address] [place] [address] Phone Care Team Providers Care Mechanical Cad Designer Name Role Phone Celia Lee MD Primary Care Provider [phone] Encounter Details Date Type Department Care Team (Late st Contact Info) Description 12/03/2014 Documentation [facility] [place] [address] [place] [address] Family Medicine, Physician [address] [place] [address] Social History Tobacco Use Types Packs/Day Years [...] on filedocumented in this encounter Care Teams Mechanical Cad Designer Relationship Specialty Start Date End Date Celia Lee MD PCP - General Pediatrics 12/09/19 09/21/22 documented as of this encounter
--- OUTSIDE RECORDS SUMMARY | 2025-04-21 15:40 | XMS_ITS ---
Author Name [facility] Unknown History of Medication Use Medication Directions Dispensed Refills Start Date End Date Stat No medication information recorded active meloxicam 7.5 mg tablet TAKE 1 TABLET BY MOUTH EVERY DAY BEFORE LUNCH active ondansetron HCl 4 mg tablet TAKE 1 TAB BY MOUTH EVERY 8 HOURS NEEDED FOR NAUSEA FOR UP TO 5 DOSES active Problems Problem Status Onset Date Problem Type Date of Resoluti on Source Cough, unspecified active 2023-08-04 [facility]Act [facility] Encounters Encounter Type Encounter Reason Primary Diagnosis Location Date Ambulatory [facility] 03/20/2023 Ambulatory [facility] 03/20/2023 Ambulatory [facility] 03/20/2023 Ambulatory [facility] 03/20/2023 Ambulatory [facility] 08/17/2022 Care Team Organization Name Specialty Phone Email Start Date End Da te [facility] Not Disclosed Primary Care 08/04/2023 [facility] Not Disclosed Primary Care 08/04/2023 01/24/2025
--- OUTSIDE RECORDS SUMMARY | 2025-04-21 15:40 | XMS_ITS | Encounter Summary ---
Author Organization [facility] Address [address] [place] [address] Phone Care Team Providers Care Community Dietitian Name Role Phone Celia Lee MD Primary Care Provider [phone] Encounter Details Date Type Department Care Team (Late st Contact Info) Description 04/10/2013 Documentation [facility] [place] Family Medicine [address] [place] [address] Family Medicine, Physician [address] [place] [address] Social History Tobacco Use Types Packs/Day Years [...] on filedocumented in this encounter Care Teams Community Dietitian Relationship Specialty Start Date End Date Celia Lee MD PCP - General Pediatrics 12/09/19 09/21/22 documented as of this encounter
--- OUTSIDE RECORDS SUMMARY | 2025-04-21 15:40 | XMS_ITS | Clinical Summary ---
Author Organization [facility] Address [address] [place] [address] Care Team Providers Care Agricultural Produce Packer Name Role Phone Unavailable Primary Care Provider Unavailabl e Social History Tobacco Use Types Packs/Day Years Used Date Smoking Tobacco: Never Smokeless Tobacco: Never Alcohol Use Standard Drinks/Week Comments Not Currently 0 (1 standard drink = 0.6 oz pur e alcohol) Sex and Gender Information Value Date Recorded Sex Assigned at Not on file Legal Sex Male 3:32 PM EST Gender Identity Not on file Sexual Orientation Not on file Obstetrics History Last Filed Vital Signs Vital Sign Reading Time Taken Comments Blood Pressure - - Pulse - - Temperature - - Respiratory Rate - - Oxygen Saturation - - Inhaled Oxygen Concentration - - Weight 85.7 kg (189 lb) 07/04/2022 4:05 PM EST Height 180.3 cm (5' 11 ) 07/04/2022 4:05 PM EST Body Mass Index 26.36 07/04/2022 4:05 PM EST Plan of Treatment Health Maintenance Due Date Last Done Comments HPV Vaccines (1 - Male 3-dos e series) 01/28/2016 DTaP,Tdap,and Td Vaccines (1 - Tdap) 01/28/2020 Hepatitis B Vaccines (1 of 3 - 19+ 3-dose series) 01/28/2020 HIV Screening 05/11/2022 Hepatitis C Screening 05/11/2022 Social Influencers of Health Screening 05/11/2022 Depression Screening 06/12/2024 COVID-19 Vaccine (1 - 2023-2 5 season) 2025 Influenza Vaccine (#1) 2025 RSV Immunization Adult Patie nts (1 - 1-dose 75+ series) 01/28/2076 HIB Vaccines Aged Out No longer eligi ble based on patient's age to complete this topic Hepatitis A Vaccines Aged Out No long er eligible based on patient's age to complete this topic IPV Vaccines Aged Out No longer eligi ble based on patient's age to complete this topic MMR Vaccines Aged Out No longer eligi ble based on patient's age to complete this topic Meningococcal ACWY Vaccine Aged Out N o longer eligible based on patient's age to complete this topic Meningococcal B Vaccine Aged Out No l onger eligible based on patient's age to complete this topic Pneumococcal Vaccine: Pediat rics (0 to 5 Years) and At-Risk Patients (6 to 49 Years) Aged Out No longer eligible b ased on patient's age to complete this topic RSV Immunization Patients Un cynthia 20 months Aged Out No longer eligible b ased on patient's age to complete this topic Varicella Vaccines Aged Out No longer eligible based on patient's age to complete this topic
--- OUTSIDE RECORDS SUMMARY | 2025-04-21 15:40 | XMS_ITS | Clinical Summary ---
Author Organization [employer] Address [address] [facility] [address] [place] [address] Care Team Providers Care Cafe Aide Name Role Phone Unavailable Primary Care Provider Unavailabl e Allergies Active Allergy Reactions Criticality Noted Date Comments Pollen Extract Runny nose Low 01/28/2020 Medications No known medications Social History Tobacco Use Types Packs/Day Years Used Date Smoking Tobacco: Never Passive Smoke Exposure: Never Smokeless Tobacco: Never Tobacco Cessation:Counseling Given: Not Answered Sex and Gender Information Value Date Recorded Sex Assigned at Male 04/11/2022 10:24 AM EDT Legal Sex Male 10:24 AM EDT Gender Identity Male 04/11/2022 10:24 AM EDT Sexual Orientation Choose not to disclose 2021 10:24 AM EDT Last Filed Vital Signs Vital Sign Reading Time Taken Comments Blood Pressure 110/58 04/11/2024 9:02 AM EDT Pulse 66 04/11/2024 9:02 AM EDT Temperature - - Respiratory Rate - - Oxygen Saturation - - Inhaled Oxygen Concentration - - Weight - - Height - - Body Mass Index - - Plan of Treatment Health Maintenance Due Date Last Done Comments Depression Screening 2001 HIV Screening 2001 SDOH Screening 2001 Disability Screening 2001 Alcohol/Substance Use Screening 2013 Family Planning (PISQ) 01/28/2016 Hepatitis C Screening 2019 Dental Oral Exam 10/10/2024 04/11/2024, 12/2017, 08/22/2008 Dental Prophylaxis 10/10/2024 04/11/2024, 0 11/14/2018, 08/16/2017, Additional history exists COVID-19 Vaccine ( season) 2025 07/06/2021, 11/26/2020, 11/05/2020 Influenza Vaccine (#1) 2025 4, 03/10/2020, 05/16/2019, Additional history exists Dental X-Ray: Bitewings 04/12/2025 04/11/20 24, 11/14/2018, 08/16/2017, Additional history exists Tobacco Screening 05/22/2025 05/22/2024 Dental X-Ray: Full Mouth 04/12/2027 04/11/2024, 08/10 DTaP/Tdap/Td Vaccines (8 - Td or Tdap) 01/22/2032 01/21/2022, 02/10/2012, 04/21/2005, Additional history exists Zoster Vaccines (1 of 2) 2051 RSV Patients and Patients Aged 60 years or older (1 - 1-dose 75+ series) 01/28/2076 Hepatitis B Vaccines Completed 02/14/2002, 2001, 2001 HIB Vaccines Completed 05/06/2002, 07/14, 2001, Additional history exists Pneumococcal Vaccine: Pediatrics (0 to 5 Years) and At-Risk Patients (6 to 49) Years Aged Out 03/10/2003, 2001, 2001, Additional history exists No longer eligible based on patient's age to complete this topic IPV Vaccines Completed 04/21/2005, 07/14, 2001, Additional history exists HPV Vaccines Completed 12/12/2013, 02/10, 02/10/2012 Hepatitis A Vaccines Completed 10/22/2014, 12/13/19 14 Meningococcal Vaccine Completed 01/31/2017, 012 Meningococcal B Vaccine Completed 05/16/2019, 10/25 RSV under 20 months Aged Out No longe r eligible based on patient's age to complete this topic Rotavirus Vaccines Aged Out No longer eligible based on patient's age to complete this topic Procedures Procedure Name Priority Date/Time Associated Diagnosis Comments PROPHYLAXIS - ADULT Routine 04/11/2024 9 :00 AM EDT Dental caries INTRAORAL - COMPLETE SERIES OF RADIOGRAPHIC IMAGES Routine 04/11/2024 9:00 AM EDT Dental caries PERIODIC ORAL EVALUATION - ESTABLISHED PATIENT Routine 04/11/2024 9:00 AM EDT Dental caries from Last 3 Months or Most Recently Relevant to Health Maintenance Insurance [facility] STAND ADULT
--- OUTSIDE RECORDS SUMMARY | 2025-04-21 15:40 | XMS_ITS | Clinical Summary ---
Author Organization [facility] Address [address] [place] [id number] Phone Care Team Providers Care Environmental Emergencies Planner Name Role Phone Unavailable Primary Care Provider Unavailabl e Allergies Active Allergy Reactions Criticality Noted Date Comments Environmental Runny nose Low 01/28/2020 Medications loratadine 10 MG tablet Take 10 mg by mouth daily. Active Active Problems Problem Noted Date Diagnosed Date Allergic rhinitis 02/01/2018 Overview (02/01/2018): Responds to loratadine. Assessment & Plan (01/21/2022 8:56 AM EDT): Under good control Resolved Problems Problem Noted Date Diagnosed Date Resolved Date Jumper's knee of left side 08/01/2018 0 01/28/2020 Overview (08/01/2018): Seen in [facility] with acute injury of the knee playing basketball. Neg Xrays. Referred to orthopedics. Immunizations Immunization Administration Dates Next Due DTaP 5 04/21/2005, 3,2001,06/01,2001 H1N1 10/21/2009,06/25/2009 HPV, Quadrivalent 12/12/2013,02/27/2013,02/10/20 12 Hep A, ped/adol 10/22/2014,12/12/2013 Hep B, ped/adol 02/14/2002,2001,2001 Hib (PRP-T) 05/06/2002, 2,2001,03/13 IPV 04/21/2005, 2,2001,03/13 Influenza Split 02/27/2013,02/10/2012 Influenza, injectable, MDCK, preservative free, quadrivalent 03/10/2020 Influenza, injectable, quadrivalent 03/02/2016 Influenza, injectable, quadr ivalent, preservative free 05/16/2019,10/25/2018,03/09/2015 Influenza, injectable, trivalent 06/25/2009,04/12,06/24/2005 Influenza, intranasal, trivalent 03/31/2010 MMR 04/21/2005,02/14/2002 Meningococcal B Trumenba 05/16/2019,10/25/2018 Meningococcal Conj (Menactra) MCV4P 01/31/2017,0 02/10/2012 PPD Test 01/28/2019 Pneumococcal Conjugate 03/10/2003,2001,2001,03/31 Tdap 01/21/2022,02/10/2012 Varicella 09/05/2007,02/14/2002 Family History Medical History Relation Name Comments Aortic stenosis Brother Dav No Known Problems Father Max No Known Problems Mother Trisha Relation Name Status Comments Brother Dav Brother: Valvul ar heart disease Father Max Alive Father: Alive a nd well Maternal Grandmother Materna l grandmother: Asthma Mother Trisha Alive Mother: Asthma Other No family histo ry of Seizure disorder, No family history of Deafness, No family history of Cancer, No family history of Heart disease, No family history of Sudden /CT under age 55, No family history of Developmental dislocation of hip, Family history of Developmental dislocation of hip, Family history of Hyperlipidemia, Family history of Hyperlipidemia, No family history of Migraines, Family history of Autism, No family history of Obesity, Family history of Migraines, No family history of Strabismus, Family history of Diabetes mellitus, No family history of CVA (Stroke) Social History Tobacco Use Types Packs/Day Years Used Date Smoking Tobacco: Never Smokeless Tobacco: Never Comments:Never smoker Alcohol Use Standard Drinks/Week Comments Yes 0 (1 standard drink = 0.6 oz pur e alcohol) monthly Hunger/Food Answer Date Recorded In the last 12 months, did y ou or your family ever eat less than you felt you should because there wasn't enough money for food? No 02/01/2021 Stable Housing Answer Date Recorded Are you worried that in the next 2 months you may not have stable housing? No 02/01/2021 Transportation Concerns Answer Date Rec orded In the last 12 months, have you or your family ever had to go without healthcare because you didn't have a way to get there? No 02/01/2021 Hazards in Home Answer Date Recorded Think about the place you li ve. Do you have problems with any of the following? Pests (mice or roaches), mold, no/not working smoke detectors, water leaks, no window guards. No 2020 Financing Utilities Answer Date Recorde d In the last 12 months, has t he electric, gas, oil, or water company threatened to shut off your services in your home? No 02/01/2021 Safety at Home Answer Date Recorded Are you or your family worried about feeling saf e in your home? No 02/01/2021 Outside Support Answer Date Recorded Do you feel that you need mo re support from other people or programs to help you care for yourself or your family? No 02/01/2021 Understanding Health Concerns Answer Da te Recorded Do you need help understandi ng your or your child's healthcare needs (diagnosis, medications, plan, etc.)? No 02/01/2021 Financing Health Concerns Answer Date R ecorded In the last 12 months, was t here a time when your child needed to see a doctor or get medications or supplies but could not because of cost? No 02/01/2021 Missing School or Work Answer Date Al rded Did you or your child miss s chool or work because of a health problem that could have been avoided? No 02/01/2021 Sex and Gender Information Value Date Recorded Sex Assigned at Male 01/28/2019 9:48 AM EDT Legal Sex Male 5:14 PM EDT Gender Identity Male 01/28/2019 9:48 AM EDT Sexual Orientation Straight 01/28/2019 9: 48 AM EDT Last Filed Vital Signs Vital Sign Reading Time Taken Comments Blood Pressure 119/71 01/21/2022 8:36 AM EDT Pulse 54 01/21/2022 8:36 AM EDT Temperature 36.4 C (97.5 F) 01/21/2022 8:36 AM EDT Respiratory Rate - - Oxygen Saturation - - Inhaled Oxygen Concentration - - Weight 94.9 kg (209 lb 3.2 oz) 01/21/2022 8:36 A M EDT Height 176.5 cm (5' 9.5 ) 01/21/2022 8:36 AM EDT Body Mass Index 30.45 01/21/2022 8:36 AM EDT Plan of Treatment Health Maintenance Due Date Last Done Comments Influenza Vaccines (#1) 2025 03/10/20 20, 05/16/2019, 10/25/2018, Additional history exists COVID-19 Vaccine (2024- 6 season) 2025 07/06/2021, 11/26/2020, 11/05/2020 DTaP,Tdap,and Td Vaccines (8 - Td or Tdap) 01/22/2032 01/21/2022, 02/10/2012, 04/21/2005, Additional history exists Hepatitis B Vaccines Completed 02/14/2002, 2001, 2001 HIB Vaccines Completed 05/06/2002, 07/14, 2001, Additional history exists Pneumococcal Vaccine Completed 03/10/2003, 2001, 2001, Additional history exists IPV Vaccines Completed 04/21/2005, 07/14, 2001, Additional history exists MMR Vaccines Completed 04/21/2005, 02/14/2002 Varicella Vaccines Completed 09/05/2007, 02/14/2002 HPV Vaccines Completed 12/12/2013, 02/10, 02/10/2012 Hepatitis A Vaccines Completed 10/22/2014, 12/13/19 14 Meningococcal Vaccine Completed 01/31/2017, 012 Men B Vaccine Completed 05/16/2019, 10/25/2018
--- OUTSIDE RECORDS SUMMARY | 2025-04-21 15:40 | XMS_ITS | Encounter Summary ---
Author Organization [facility] Address [address] [place] [address] Phone Care Team Providers Care Hospice Office Coordinator Name Role Phone Celia Lee MD Primary Care Provider [phone] Encounter Details Date Type Department Care Team (Late st Contact Info) Description 12/05/2013 Documentation [facility] Family Medicine [address] [place] [address] Family Medicine, Physician [address] [place] [address] Social History Tobacco Use Types Packs/Day Years [...] on filedocumented in this encounter Care Teams Hospice Office Coordinator Relationship Specialty Start Date End Date Celia eLe MD PCP - General Pediatrics 12/09/19 09/21/22 documented as of this encounter
--- OUTSIDE RECORDS SUMMARY | 2025-04-21 15:40 | XMS_ITS | Data Portability ---
Author Organization [facility] [address] Address [address] [place] [address] Assessment No assessment recorded. Plan of Treatment Reminders Order Date Submit Date Provider Last Modified By Organization Details Last Modified Time Details Appointments None record ed. Lab None record ed. Referral None record ed. Procedures None record ed. Surgeries None record ed. Imaging None record ed. Medication Orders None record ed. Patient TargetsNo targets recorded. Patient InstructionsNo instructions recorded. Reason for Referral None Reported. Problems No Known Problems Procedures Surgical History Date Name Laterality Status Provider Name and Address Organization Details Recorded Time Knee arthroscopy /surgery completed Lillian Ramirez [employer] 02/03/2023 15:30:35 Imaging Results None recorded. Procedure Notes None recorded. Medical Equipment None Reported. Allergies No known drug allergies Medications Name Sig Start Date Stop Date Status Note LastModified by Organization Details LastModified Time ondansetron HCl 4 mg tablet TAKE 1 TAB BY MOUTH EVERY 8 HOURS NEEDED FOR NAUSEA FOR UP TO 5 DOSES active Not Available Not Available No t Available meloxicam 7.5 mg tablet TAKE 1 TABLET BY MOUTH EVERY DAY BEFORE LUNCH active Not Available Not Available No t Available Vitals Date Recorded Body height Oxygen saturation Oxygen saturation in Arterial blood by Pulse oximetry Pain severity - 0-10 verbal numeric rating [Score] - Reported Heart rate Respiratory rate Body temperature Body mass index (BMI) Body weight Systolic And Diastolic Provider Name and Address Organization Details Last Updated DateTime 3 180.34 cm 98 % 98 % 0 71 /min 18 /min 97.7 [degF] 29.1 kg/m2 40252.8 1 g 119/72 mm[Hg] Lillian Baires [facility] [employer] 15:29:11 Social History None recorded. Functional Status Question Answer Note LastModified by Organizat ion Details LastModified Time Do you use any illicit or recreational drugs? No Information not available 02/03/2023 Do you or have you ever used any other forms of tobacco or nicotine? No Information not available 02/03/2023 What is your level of alcohol consumption? Occasional Information not available 02/03/2023 Mental Status None recorded. Family History Relationship Description Onset Age of this Age Resolved Age Notes LastModified by Organization Details LastModified Time Father No current problems or disability Not available 02/03 15:30:48 Mother No current problems or disability Not available 02/03 15:30:48 Medical History No medical history recorded. Immunizations Vaccine Type Date Status Note Provider Nam e and Address Organization Details Recorded Time Influenza, split virus, quadrivalent, preservative 6 completed Lillian Baires null, [place] - [facility] 02/03/2023 15:30:27 meningococcal B, recombinant 9 completed Lillian Baires null, [place] - [facility] 02/03/2023 15:30:27 meningococcal B, recombinant 9 completed Lillian Baires null, [place] - [facility] 02/03/2023 15:30:27 Influenza, MDCK, quadrivalent, PF 0 completed Lillian Baires null, PA - [facility] 02/03/2023 15:30:27 COVID-19, mRNA, LNP-S, PF, 30 mcg/0.3 mL dose 2 completed Lillian Baires null, [place] - [facility] 02/03/2023 15:30:27 COVID-19, mRNA, LNP-S, PF, 30 mcg/0.3 mL dose 1 completed Lillian Baires null, [place] - [facility] 02/03/2023 15:30:27 COVID-19, mRNA, LNP-S, PF, 30 mcg/0.3 mL dose 1 completed Lillian Baires null, [place] - [facility] 02/03/2023 15:30:27 Tdap 2 completed Lillian Baires null, [place] - [facility] 02/03/2023 15:30:27 meningococcal MCV4P 7 completed Lillian Baires null, [place] - [facility] 02/03/2023 15:30:27 Influenza, split virus, quadrivalent, PF 9 completed Lillian Baires null, [place] - [facility] 02/03/2023 15:30:27 Influenza, split virus, quadrivalent, PF 5 completed Lillian Baires null, [place] - [facility] 02/03/2023 15:30:27 Influenza, split virus, quadrivalent, PF 9 completed Lillian Baires null, [place] - [facility] 02/03/2023 15:30:27 Past Encounters Encounter ID Performer Location Encounter Start Date Encounter Closed Date Diagnosis/Indication Diagnosis SNOMED-CT Code Diagnosis ICD10 Code Diagnosis IMO Codes Diagnosis [place] [id number] [place] [id number] [facility] [address] [place] [address] 02/03/2023 15:15:03 02/03/2023 16:03:32 History and physical examination, [facility] [id number] Z02.0 Health Concerns Section Related Observation LastModified by Organization Detai ls LastModified Time None Recorded Concern Status LastModified by Organization Details LastModified Time None Recorded Advance Directives Directive None Recorded Payers Insurance Date Sequence Insurance Name Policy Number Policy Lackey Covered Member ID Lackey Member ID Guarantor Name 02/20/2023 PAY AT [facility]man Bourgeois 02/03/2023 OC-PAY AT TIME OF SERVICE 2022 [facility] Bourgeois
== END 2025-04-21 14:11 | disposition home or self-care (01) ==
LOC: HO.HMCH 13:31
PROVIDERS: PCP Physician Assistant; Visit Provider Physician Assistant
DX: Z00.00 Encounter for general adult medical examination without abnormal findings (principal); Z13.1 Encounter for screening for diabetes mellitus; Z23 Encounter for immunization

== ENCOUNTER → 2025-04-21 13:30 | Outpatient (BNVA) | payer OTHER, MEDICAID, SELFPAY | PROVIDERS: PCP Physician Assistant; Visit Provider Physician Assistant | DX: Z00.00 Encounter for general adult medical examination without abnormal findings (principal); Z23 Encounter for immunization; Z13.1 Encounter for screening for diabetes mellitus | CPT/HCPCS: 90471; 90656; 96127 ==